=== PATIENT | male | born 1955 | race Caucasian/White ===

== ENCOUNTER 2023-12-24 10:44 | Emergency (ER) | payer BC ==
[2023-12-24 10:54] VITALS: BP 170/84; PULSE 63; RESP 18; TEMP 98.4; BMI 31.9
[2023-12-24 11:58] LABS: URINE APPEARANCE CLEAR; URINE BILIRUBIN NEGATIVE (NEGATIVE); URINE COLOR YELLOW; URINE GLUCOSE (UA) 3+ (NEGATIVE); URINE KETONE TRACE (NEGATIVE)
[2023-12-24 11:59] LABS: URINE PROTEIN 2+ (NEGATIVE)
[2023-12-24 12:00] LABS: HYALINE CASTS 1.31 /uL (0-3.1); URINE BACTERIA 0 /uL (0-1359); URINE LEUK ESTERASE NEGATIVE (NEGATIVE); URINE NITRITE NEGATIVE (NEGATIVE); URINE RBC 36.4 /uL (0-23.9); URINE WBC 5.2 /uL (0-25.8)
[2023-12-24] MEDS ORDERED: ONDANSETRON 4 MG/2 ML VIAL ONE (12:25)
[2023-12-24] MEDS ORDERED: ACETAMINOPHEN INJECTION 100 ML ONE (12:25)
[2023-12-24] MEDS: ACETAMINOPHEN 1000 MG/100 ML BAG IVPB ONE (13:07)
[2023-12-24] MEDS: ONDANSETRON 4 MG/2 ML VIAL IVPUSH ONE (13:08)
[2023-12-24 13:10] LABS: BASO % 0.8 % (0-2.0); EOS % 1.5 % (0-4.5); HEMATOCRIT 42.6 % (35.4-49); HEMOGLOBIN 15.2 GM/dL (11.7-16.9); LYMPH % 16.5 % (8-40); MCH 30.2 pg (25.7-33.7); MCHC 35.7 g/dl (32.0-35.9); MEAN CELL VOLUME 84.7 fl (80-96); MONO % 4.4 % (3.8-10.2); NEUT % 76.8 % (42.8-82.8); PLATELET COUNT 190 10^3/uL (134-434); RBC 5.03 M/mm3 (4.00-5.60); RDW 14.5 % (11.9-15.9); WHITE BLOOD COUNT 8.4 K/mm3 (4.0-10.0)
[2023-12-24 13:29] LABS: POTASSIUM 4.4 mmol/L (3.5-5.1)
[2023-12-24 13:32] LABS: ALBUMIN 4.6 g/dl (3.4-5.0); BLOOD UREA NITROGEN 12.8 mg/dL (7-18)
[2023-12-24 13:35] LABS: CREATININE 0.8 mg/dL (0.55-1.3)
[2023-12-24 13:36] LABS: BILIRUBIN,TOTAL 2.8 mg/dL (0.2-1)
[2023-12-24 13:37] LABS: TOT PROT 8.4 g/dl (6.4-8.2)
[2023-12-24 14:35] LABS: HIV INTERPRETATION NEGATIVE (NEGATIVE)
== END 2023-12-24 14:41 | disposition home or self-care (01) ==
LOC: JER 10:44
PROC: 3E033NZ Introduction of Analgesics, Hypnotics, Sedatives into Peripheral Vein, Percutaneous Approach (ICD-10-PCS; principal; 2023-12-24)
PROC: 3E033GC Introduction of Other Therapeutic Substance into Peripheral Vein, Percutaneous Approach (ICD-10-PCS; 2023-12-24)
DX: S39.012A Strain of muscle, fascia and tendon of lower back, initial encounter (principal); R11.0 Nausea; X58.XXXA Exposure to other specified factors, initial encounter
CPT/HCPCS: 36415; 74176-TC; 80053; 81003; 85025; 86803; 87086; 87389; 87522; 99284-25; J0131

== ENCOUNTER 2024-09-01 05:35 | Observation (INO) | payer BC, OTHER ==
[2024-09-01 05:42] VITALS: BMI 33.3
[2024-09-01] MEDS ORDERED: ASPIRIN COATED 81 MG TABLET.EC ONE (06:04)
[2024-09-01] MEDS: ASPIRIN 81 MG CHEWABLE TABLETS PO ONE (06:14)
[2024-09-01 06:28] LABS: ABSOLUTE IMMATURE GRANULOCYTES 0.02 x10^3/uL (0.0-0.031); BASOPHILS # 0.03 x10^3/uL (0.01-0.08); EOSINOPHIL % 4.4 % (0.8-7.0); EOSINOPHILS # 0.28 x10^3/uL (0.04-0.54); HEMATOCRIT 37.1 % (40.1-51.0); MEAN CELL VOLUME 83.4 fl (79.0-92.2); MEAN PLT VOLUME 10.8 fl (9.4-12.4); MONOCYTE # 0.48 x10^3/uL (0.30-0.82); MONOCYTE % 7.6 % (5.3-12.2); PLATELET COUNT 144 x10^3/uL (163-337); RDW 12.7 % (12.2-16.4)
[2024-09-01 06:37] LABS: INR 1.03 (0.83-1.09); PROTHROMBIN TIME (PATIENT) 11.2 SEC (9.7-13.0)
[2024-09-01 06:40] LABS: ACTIVATED PTT 31.4 SECONDS (25.2-36.5)
[2024-09-01 06:47] LABS: POTASSIUM 4.2 mmol/L (3.5-5.1)
[2024-09-01 06:49] LABS: ALBUMIN 4.3 g/dl (3.4-5.0); BLOOD UREA NITROGEN 14.7 mg/dL (7-18); CALCIUM 9.4 mg/dL (8.5-10.1)
[2024-09-01 06:50] LABS: MAGNESIUM 1.8 mg/dL (1.8-2.4)
[2024-09-01 06:53] LABS: CREATININE 0.7 mg/dL (0.55-1.3)
[2024-09-01 06:54] LABS: BILIRUBIN,TOTAL 1.8 mg/dL (0.2-1); TOT PROT 7.5 g/dl (6.4-8.2)
[2024-09-01 06:57] LABS: N-TERMINAL BNP 1139.8 pg/ml (5-125)
[2024-09-01] MEDS ORDERED: RAMIPRIL 5 MG CAPSULE ONE (07:24)
[2024-09-01] MEDS: RAMIPRIL 5 MG CAPSULE PO ONE (07:28)
[2024-09-01 08:21] LABS: BILIRUBIN,DIRECT 0.4 mg/dL (0.0-0.2)
[2024-09-01 11:57] LABS: HIV INTERPRETATION NEGATIVE (NEGATIVE)
[2024-09-01 11:58] LABS: HCV DIAGNOSTIC IN-HOUSE W/RFLX REACTIVE (NONREACTIVE)
[2024-09-01] MEDS: HEPARIN NA (PORCINE) 5,000 UNITS/ML 1ML VIAL SQ SCH (22:25)
[2024-09-01] MEDS: ATORVASTATIN CA 40 MG TABLET (FP) PO SCH (23:48)
[2024-09-02 06:34] LABS: ABSOLUTE IMMATURE GRANULOCYTES 0.04 x10^3/uL (0.0-0.031); BASOPHILS # 0.03 x10^3/uL (0.01-0.08); EOSINOPHILS # 0.35 x10^3/uL (0.04-0.54); HEMOGLOBIN 13.8 g/dL (13.7-17.5); MCHC 33.7 g/dl (32.3-36.5); MEAN CELL VOLUME 85.8 fl (79.0-92.2); MEAN PLT VOLUME 10.7 fl (9.4-12.4); MONOCYTE % 8.5 % (5.3-12.2); PLATELET COUNT 172 x10^3/uL (163-337); RDW 13.1 % (12.2-16.4)
[2024-09-02 08:18] LABS: POTASSIUM 3.9 mmol/L (3.5-5.1)
[2024-09-02 08:20] LABS: BLOOD UREA NITROGEN 16.4 mg/dL (7-18); CALCIUM 9.3 mg/dL (8.5-10.1)
[2024-09-02 08:24] LABS: CREATININE 0.7 mg/dL (0.55-1.3)
[2024-09-02 08:25] LABS: TOT PROT 7.2 g/dl (6.4-8.2)
[2024-09-02] MEDS: ASPIRIN COATED 81 MG TABLET.EC PO SCH (10:50)
[2024-09-02] MEDS: INSULIN ASPART SLIDING SCALE (NOVOLOG) 1 VIAL SQ SCH (16:58)
[2024-09-02 23:38] VITALS: RESP 18
[2024-09-03 07:19] LABS: ABSOLUTE IMMATURE GRANULOCYTES 0.15 x10^3/uL (0.0-0.031); BASOPHILS # 0.03 x10^3/uL (0.01-0.08); EOSINOPHIL % 4.2 % (0.8-7.0); EOSINOPHILS # 0.31 x10^3/uL (0.04-0.54); HEMATOCRIT 39.6 % (40.1-51.0); HEMOGLOBIN 13.6 g/dL (13.7-17.5); MCHC 34.3 g/dl (32.3-36.5); MEAN CELL VOLUME 83.7 fl (79.0-92.2); MEAN PLT VOLUME 10.7 fl (9.4-12.4); MONOCYTE % 8.1 % (5.3-12.2); PLATELET COUNT 176 x10^3/uL (163-337); RDW 13.2 % (12.2-16.4)
[2024-09-03 07:37] LABS: POTASSIUM 4.3 mmol/L (3.5-5.1)
[2024-09-03 07:42] LABS: CALCIUM 9.2 mg/dL (8.5-10.1)
[2024-09-03 07:43] LABS: ALBUMIN 3.8 g/dl (3.4-5.0); BLOOD UREA NITROGEN 16.3 mg/dL (7-18)
[2024-09-03 07:46] LABS: CREATININE 0.7 mg/dL (0.55-1.3)
[2024-09-03 07:47] LABS: BILIRUBIN,TOTAL 2.1 mg/dL (0.2-1)
[2024-09-03 10:26] VITALS: PULSE 86
[2024-09-03 15:13] VITALS: BP 158/77; TEMP 98.3
== END 2024-09-03 16:16 | disposition home or self-care (01) ==
LOC: JER 05:35 → JERBED 06:39 → J4S 10:31
PROVIDERS: ADMIT Internal Medicine; ATTEND Internal Medicine
PROC: 3E023GC Introduction of Other Therapeutic Substance into Muscle, Percutaneous Approach (ICD-10-PCS; principal; 2024-09-01)
PROC: 3E013VG Introduction of Insulin into Subcutaneous Tissue, Percutaneous Approach (ICD-10-PCS; 2024-09-01)
DX: U07.1 COVID-19 (principal); E11.9 Type 2 diabetes mellitus without complications; E78.5 Hyperlipidemia, unspecified; I10 Essential (primary) hypertension; Z95.1 Presence of aortocoronary bypass graft; R07.9 Chest pain, unspecified
CPT/HCPCS: 0241U-QW; 36415; 71046-TC-FY; 71250-TC; 80053; 80061; 82248; 82550; 82553; 82962; 83036; 83605; 83735; 83880; 84443; 84484; 85025; 85610; 85730; 86803; 87389; 87522; 93005; 93010; 93306-TC; 99285-25; G0378